=== PATIENT | male | born 1995 | race Caucasian/White ===

== ENCOUNTER 2019-04-20 02:54 | Emergency (ER) | payer BC, OTHER ==
[2019-04-20] MEDS ORDERED: Acetaminophen 500 MG Tab PO ONE (03:13)
[2019-04-20] MEDS ORDERED: Bacitracin Oint 1 GM U/D Packet TOP ONE (03:13)
[2019-04-20] MEDS ORDERED: Diphtheria,Pertussis(Acell),Tetanus Vaccine 0.5 ML Syringe IM ONE (03:13)
--- NOTE | 2019-04-20 03:19 | EDM.PDOC ---
ED HPI GENERAL MEDICAL PROBLEM - General Chief Complaint: Laceration Stated Complaint: CUT ON HEAD Time Seen by Provider: 04/20/19 03:06 - History of Present Illness INITIAL COMMENTS - FREE TEXT/NARRATIVE: HISTORY AND PHYSICAL: History of present illness: The patient is a healthy 23-year-old male who presents with complaints of pain to the top of his head and his neck after a piece of wood fell from the balcony above his apartment onto the top of his head. Patient showed me a picture of his apartment and he was leaning out of a sliding glass door to see where his dog was and a loose piece of wood from the balcony above him fell on top of his head. He did not pass out or blacked out but he has pain and swelling with a superficial wound on the top of his head and is complaining of diffuse neck pain. He has no weakness numbness or tingling in his extremities no chest pain or shortness of breath and has had no nausea or vomiting. He has no visual changes and he is currently under the care of one of our mechanical design drafter, Dr. Dumont, for ongoing issues with his eyes but there is nothing new or different this evening. He does not feel confused and he did not take any medications prior to coming here. He is unsure of his last tetanus shot. The patient is not on any anticoagulation therapy Review of systems: As per history of present illness and below otherwise all systems reviewed and negative. Past medical history: As per history of present illness and as reviewed below otherwise noncontributory. Surgical history: As per history of present illness and as reviewed below otherwise noncontributory. Social history: No reported history of drug or alcohol abuse. Family history: As per history of present illness and as reviewed below otherwise noncontributory. Physical exam: General: Well-developed well-nourished man who is nontoxic and vital signs are noted by me HEENT: normocephalic, at the top of the patient's scalp/skull there is an ill- defined area of soft tissue swelling and a superficial abrasion seen but no laceration, there is tenderness in this area but no bony defect, pupils reactive , negative for conjunctival pallor or scleral icterus, mucous membranes moist, throat clear, neck supple, nontender, trachea midline. There are no midline step -offs in his defects of the cervical spine but there is diffuse paraspinal tenderness and a c-collar was placed. Lungs: Clear to auscultation, breath sounds equal bilaterally, chest nontender. Heart: S1S2, regular rate and rhythm no overt murmurs Abdomen: Soft, nondistended, nontender. NABS Pelvis: Deferred Genitourinary: Deferred. Rectal: Deferred. Extremities: Atraumatic, full range of motion and no defects or deficits, no edema Neurovascular unremarkable. Neuro: Awake, alert, oriented. Cranial nerves II through XII unremarkable. Cerebellum unremarkable. Motor and sensory unremarkable throughout. Exam nonfocal. Back: There are no midline step-offs tenderness defects the thoracic or lumbar spine and no posterior rib tenderness Diagnostics: CT scan of the head and C-spine Therapeutics: Cleansing of the superficial abrasion on the scalp and bacitracin, Tdap, Tylenol I did discuss with the patient his CT scan findings as he is currently being worked up by ophthalmology for another problem and I was not sure if this would be helpful to them to review the CTs. He notes that he has a large adenoids and a lot of lymphomatous type tissue edema that would correlate with a lymphoproliferative disorder and it is not related to 2 days workup but he is aware and will have the mechanical design drafter review the CT with respect to his current workup for his eye issues. Impression: Closed head injury with scalp abrasion and cervical strain Definitive disposition and diagnosis as appropriate pending reevaluation and review of above. head area Pain Score (Numeric/FACES): 5 - Related Data Allergies Allergy/AdvReac Type Severity Reaction Status Date / Time No Known Allergies Allergy Verified 04/20/19 03:06 Past Medical History HEENT History: Reports: Impaired Vision Other HEENT History: Glasses Cardiovascular History: Reports: Hypertension Respiratory History: Reports: Asthma - Past Surgical History Dermatological Surgical History: Reports: Other (See Below) Social & Family History - Family History Family Medical History: Noncontributory - Living Situation & Occupation Living situation: Reports: Single, with Significant Other Occupation: Employed ED ROS GENERAL - Review of Systems Review Of Systems: ROS reveals no pertinent complaints other than HPI. ED EXAM, SKIN/RASH Exam: See Below (See dictation) Course - Vital Signs Last Recorded V/S: Last Vital Signs Temp 36.6 C 04/20/19 03:07 Pulse 102 H 04/20/19 03:07 Resp 18 04/20/19 03:07 BP 166/95 H 04/20/19 03:07 Pulse Ox 98 04/20/19 03:07 - Orders/Labs/Meds Orders: Active Orders 24 hr Category Date Time Status Communication Order [RC] STAT Care 04/20/19 03:13 Active Vaccines to be Administered [RC] PER UNIT ROUTINE Care 04/20/19 03:13 Active Meds: Medications Discontinued Medications Generic Name Dose Route Start Last Admin Trade Name Lacey PRN Reason Stop Dose Admin Acetaminophen 1,000 mg 04/20/19 03:13 04/20/19 03:21 Tylenol Extra Strength PO 04/20/19 03:14 1,000 mg ONETIME ONE Administration Bacitracin 1 dose 04/20/19 03:13 04/20/19 03:24 Bacitracin Oint 1 Gm TOP 04/20/19 03:14 1 dose ONETIME ONE Administration Diphtheria/Tetanus/Acell Pertussis 0.5 ml 04/20/19 03:13 04/20/19 03:28 Adacel IM 04/20/19 03:14 0.5 ml .ONCE ONE Administration Departure - Departure Time of Disposition: 04:17 Disposition: Home, Self-Care 01 Condition: Good Clinical Impression: Closed head injury Qualifiers: Encounter type: initial encounter Qualified Code(s): S09.90XA - Unspecified injury of head, initial encounter Scalp abrasion Qualifiers: Encounter type: initial encounter Qualified Code(s): S00.01XA - Abrasion of scalp, initial encounter Cervical strain Qualifiers: Encounter type: initial encounter Qualified Code(s): S16.1XXA - Strain of muscle, fascia and tendon at neck level, initial encounter - Discharge Information Referrals: PCP,None [Primary Care Provider] - Forms: ED Department Discharge Additional Instructions: The following information is given to patients seen in the emergency department who are being discharged to home. This information is to outline your options for follow-up care. We provide all patients seen in our emergency department with a follow-up referral. The need for follow-up, as well as the timing and circumstances, are variable depending upon the specifics of your emergency department visit. If you don't have a primary care physician on staff, we will provide you with a referral. We always advise you to contact your personal physician following an emergency department visit to inform them of the circumstance of the visit and for follow-up with them and/or the need for any referrals to a consulting specialist. The emergency department will also refer you to a specialist when appropriate. This referral assures that you have the opportunity for followup care with a specialist. All of these measure are taken in an effort to provide you with optimal care, which includes your followup. Under all circumstances we always encourage you to contact your private physician who remains a resource for coordinating your care. When calling for followup care, please make the office aware that this follow-up is from your recent emergency room visit. If for any reason you are refused follow-up, please contact the [facility] emergency department at and ask to speak to the emergency department charge nurse. [facility]- [facility] Family [address] [address] Use [id number] medications for headache and neck pain and apply ice to all areas of swelling and pain for the next 24 hours. You can then switch to heat on the muscles of your neck as there may be spasm. Keep your abrasion on her scalp clean and dry with mild soap and water and you may apply bacitracin or Neosporin as you choose. Please connect with your primary care provider in the clinic or one of ours for further care and evaluation and please also follow -up with Dr. Dumont and make sure that he is aware that you did have a CT scan of your head and neck and he can review those and see if any the incidental findings relate to your workup with him. Return to ER as needed and as discussed - My Orders Last 24 Hours: My Active Orders 04/20/19 03:13 Communication Order [RC] STAT Vaccines to be Administered [RC] PER UNIT ROUTINE - Assessment/Plan Last 24 Hours: My Active Orders 04/20/19 03:13 Communication Order [RC] STAT Vaccines to be Administered [RC] PER UNIT ROUTINE
--- NOTE | 2019-04-20 04:08 | CT ---
INDICATION: Trauma, beam fall on head TECHNIQUE: CT Head without i.v. contrast. COMPARISON: None FINDINGS: CSF space: The ventricles are normal for age. Brain: No evidence of mass, acute infarction or hemorrhage is seen. No mass-effect or midline shift is seen. The brain parenchyma is otherwise normal in appearance with preservation of the ryan-white matter junction. Calvarium: The visualized paranasal sinuses are well aerated. The mastoid air cells are clear. The visualized orbits are grossly unremarkable. The calvarium is unremarkable in appearance with no fractures identified. Vgsgmxcj-rl-gptasa soft tissue swelling is seen in the posterior nasopharynx. IMPRESSIONS: 1. No evidence of acute infarction, intracranial hemorrhage, or mass-effect seen. 2. Ewsrahzv-lf-eyxemr soft tissue swelling is seen in the posterior nasopharynx. This may be due to adenoidal hypertrophy but correlation with physical exam is recommended to exclude any generalized adenopathy suggestive of lymphoproliferative disorders or lymphoma. Dictated by Ziggy Harrington MD @ 04/20/2019 4:06:46 AM Please note that all CT scans at this facility use dose modulation, iterative reconstruction, and/or weight-based dosing when appropriate to reduce radiation dose to as low as reasonably achievable. Dictated by: Ziggy Harrington MD @ 04/20/2019 04:06:50 (Electronically Signed)
--- NOTE | 2019-04-20 04:12 | CT ---
INDICATION: Cervical spine injury from trauma, beam fall on head TECHNIQUE: CT cervical spine without i.v. contrast. Coronal and sagittal reformats were obtained. COMPARISON: None FINDINGS: Alignment: Unremarkable. Bone: No acute fractures or aggressive bone lesions are identified. Disc: The disc spaces are unremarkable in appearance. The facet joints are unremarkable. Soft tissue: Moderate to severe nodular soft tissue thickening is noted in the posterior nasopharynx is seen. The visualized lung apices and mediastinum are unremarkable. Bilateral jugular adenopathy is present with lymph nodes measuring up to 1.2 cm. IMPRESSIONS: 1. No acute osseous injuries are identified. 2. Moderate to severe nodular soft tissue thickening is noted in the posterior nasopharynx is seen. In the presence of jugular adenopathy, clinical follow-up is recommended to exclude lymphoproliferative disorders. Dictated by Ziggy Harrington MD @ 04/20/2019 4:11:00 AM Please note that all CT scans at this facility use dose modulation, iterative reconstruction, and/or weight-based dosing when appropriate to reduce radiation dose to as low as reasonably achievable. Dictated by: Ziggy Harrington MD @ 04/20/2019 04:11:03 (Electronically Signed)
[2019-04-20 04:18] VITALS: BP 146/95; PULSE 92
== END 2019-04-20 04:27 | disposition home or self-care (01) ==
LOC: MW.ED 02:54
DX: S16.1XXA Strain of muscle, fascia and tendon at neck level, initial encounter (principal); S00.01XA Abrasion of scalp, initial encounter; Z23 Encounter for immunization; I10 Essential (primary) hypertension; W20.8XXA Other cause of strike by thrown, projected or falling object, initial encounter
CPT/HCPCS: 70450; 72125; 90471; 90715; 99283; A9270; 99284